=== PATIENT | male | born 1985 | race Caucasian/White ===

== ENCOUNTER 2018-02-08 00:06 | Emergency (ER) | payer MEDICAID ==
[~2018-02-08] VITALS: Ht 185.4 cm; Wt 90.7 kg
[2018-02-08] MEDS ORDERED: LORazepam 0.5 MG TAB PO ONE (06:45)
[2018-02-08 07:30] VITALS: BP 127/92
== END 2018-02-08 07:59 | disposition home or self-care (01) ==
LOC: EDSEX 00:06 → EDBD 00:06 → ER 00:13
DX: F15.90 Other stimulant use, unspecified, uncomplicated (principal); F41.9 Anxiety disorder, unspecified; F32.9 Major depressive disorder, single episode, unspecified

== ENCOUNTER 2018-04-07 17:27 | Emergency (ER) | payer MEDICAID ==
[~2018-04-07] VITALS: Ht 193 cm; Wt 99.8 kg
[2018-04-07 18:10] VITALS: BP 113/72
== END 2018-04-07 20:58 | disposition home or self-care (01) ==
LOC: ER 17:27
DX: L02.512 Cutaneous abscess of left hand (principal); J45.909 Unspecified asthma, uncomplicated; F15.10 Other stimulant abuse, uncomplicated; F11.10 Opioid abuse, uncomplicated

== ENCOUNTER 2018-05-27 10:41 | Emergency (ER) | payer MEDICAID ==
[~2018-05-27] VITALS: Ht 193 cm; Wt 90.7 kg
[2018-05-27] MEDS ORDERED: KETOROLAC TROMETH 30 MG/ML 1ML VIAL IV ONE (10:45)
[2018-05-27] MEDS ORDERED: SODIUM CHLORIDE 0.9% 1,000 ML IV ONE (10:45)
[2018-05-27 10:48] VITALS: BP 111/69
[2018-05-27 11:10] LABS: Basophils # (auto) 0.1 uL; Basophils % (auto) 0.8 % (0.0-2.0); Eosinophils # (auto) 0 uL; Eosinophils % (auto) 0.2 % (0.0-7.0); Hematocrit 50.6 % (41.0-53.0); Hemoglobin 17.6 g/dL (13.5-17.5); Lymphocytes # (auto) 3.3 uL; Lymphocytes % (auto) 23.7 % (10.0-50.0); Mean Corpuscular Hgb Conc. 34.7 g/dL (32.0-36.0); Mean Corpuscular Volume 89.2 fL (80.0-100.0); Monocytes # (auto) 1.1 uL; Monocytes % (auto) 7.5 % (0.0-12.0); Neutrophils # (auto) 9.5 uL; Neutrophils % (auto) 67.8 % (37.0-80.0); Nucleated Red Blood Cells % 0.2 %; Platelet Count (auto) 391 10^3/uL (140-450); Red Blood Cells 5.67 10^6/uL (4.5-5.90); Red Cell Distribution Width 13.9 % (11.8-14.3)
[2018-05-27 11:25] LABS: Calcium 8.9 mg/dL (8.5-10.1); Potassium 3.4 mmol/L (3.5-5.1)
[2018-05-27 11:29] LABS: BUN/Creatinine Ratio 11.8; Bilirubin, Total 0.5 mg/dL (0.2-1.0); Total Protein 9.2 g/dL (6.4-8.2)
== END 2018-05-27 12:35 | disposition left against medical advice (07) ==
LOC: EDBD 10:41 → ER 10:41
DX: F11.10 Opioid abuse, uncomplicated (principal); F10.10 Alcohol abuse, uncomplicated; E87.8 Other disorders of electrolyte and fluid balance, not elsewhere classified; R73.9 Hyperglycemia, unspecified; J45.909 Unspecified asthma, uncomplicated
CPT/HCPCS: 36415; 80053; 80320; 85025; 94761

== ENCOUNTER 2018-11-07 00:25 | Emergency (ER) | payer MEDICAID ==
[~2018-11-07] VITALS: Ht 193 cm; Wt 90.7 kg
[2018-11-07 00:40] VITALS: BP 147/96
[2018-11-07 01:57] LABS: Basophils # (auto) 0.1 uL; Basophils % (auto) 0.9 % (0.0-2.0); Eosinophils # (auto) 0.1 uL; Eosinophils % (auto) 1.2 % (0.0-7.0); Hematocrit 40.6 % (41.0-53.0); Hemoglobin 13.5 g/dL (13.5-17.5); Lymphocytes % (auto) 24.9 % (10.0-50.0); Mean Corpuscular Hemoglobin 30.4 pg (28.0-32.0); Mean Corpuscular Hgb Conc. 33.4 g/dL (32.0-36.0); Monocytes # (auto) 1.1 uL; Neutrophils # (auto) 4.9 uL; Nucleated Red Blood Cells % 0.1 %; Platelet Count (auto) 296 10^3/uL (140-450); Red Blood Cells 4.46 10^6/uL (4.5-5.90); Red Cell Distribution Width 14.9 % (11.8-14.3); White Blood Cell 8.2 10^3/uL (4.4-10.8)
[2018-11-07 02:16] LABS: Albumin 3.8 g/dL (3.4-5.0); BUN/Creatinine Ratio 18.5; Calcium 8.4 mg/dL (8.5-10.1); Potassium 3.6 mmol/L (3.5-5.1)
[2018-11-07 02:19] LABS: Bilirubin, Total 0.3 mg/dL (0.2-1.0)
== END 2018-11-07 00:47 | disposition left against medical advice (07) ==
LOC: ER 00:25
DX: R06.02 Shortness of breath (principal); Z53.21 Procedure and treatment not carried out due to patient leaving prior to being seen by health care provider
CPT/HCPCS: 36415; 71045; 80053; 85025

== ENCOUNTER 2019-01-23 12:27 | Inpatient (IN) | payer MEDICAID ==
[~2019-01-23] VITALS: Ht 182.9 cm; Wt 81.6 kg
[2019-01-23] MEDS ORDERED: SODIUM CHLORIDE 0.9% 1,000 ML IV ONE ×2 (13:21→23:45)
[2019-01-23 13:35] LABS: Basophils # (auto) 0.1 uL; Basophils % (auto) 1.3 % (0.0-2.0); Eosinophils # (auto) 0.2 uL; Eosinophils % (auto) 3.3 % (0.0-7.0); Hematocrit 41.7 % (41.0-53.0); Hemoglobin 14.1 g/dL (13.5-17.5); Lymphocytes # (auto) 1.8 uL; Lymphocytes % (auto) 40.1 % (10.0-50.0); Mean Corpuscular Hemoglobin 30.6 pg (28.0-32.0); Mean Corpuscular Hgb Conc. 33.7 g/dL (32.0-36.0); Mean Corpuscular Volume 90.7 fL (80.0-100.0); Monocytes # (auto) 0.4 uL; Monocytes % (auto) 8.3 % (0.0-12.0); Neutrophils # (auto) 2.1 uL; Nucleated Red Blood Cells % 0.1 %; Platelet Count (auto) 394 10^3/uL (140-450); Red Cell Distribution Width 14.6 % (11.8-14.3); White Blood Cell 4.6 10^3/uL (4.4-10.8)
[2019-01-23 13:51] LABS: Albumin 3.7 g/dL (3.4-5.0); Calcium 9.1 mg/dL (8.5-10.1)
[2019-01-23 13:54] LABS: BUN/Creatinine Ratio 14.8; Bilirubin, Total 0.5 mg/dL (0.2-1.0); Total Protein 8.5 g/dL (6.4-8.2)
[2019-01-23] MEDS ORDERED: VANCOMYCIN 1GM/250ML 250 ML IV ONE (20:30)
[2019-01-23] MEDS ORDERED: cefTRIAXone 1GM/50ML D5W 50 ML IV ONE (20:30)
[2019-01-23] MEDS ORDERED: ONDANSETRON HCL 4 MG/2 ML VIAL IV PRN (22:15)
[2019-01-23] MEDS ORDERED: POTASSIUM CHL 20 Meq TABLET PO ONE (22:15)
[2019-01-23] MEDS ORDERED: ACETAMINOPHEN 325 MG TAB PO PRN (22:15)
[2019-01-23] MEDS ORDERED: CLINDAMYCIN 600MG IV 50 ML IV ONE (22:15)
[2019-01-23] MEDS ORDERED: TEMAZEPAM 15 MG CAP PO PRN (22:15)
[2019-01-23] MEDS ORDERED: chlordiazePOXIDE HCL 25 MG CAP PO PRN (22:15)
[2019-01-23 22:57] LABS: Lactic Acid w/Reflex 2.8 mmol/L (0.4-2.0)
[2019-01-24] VITALS (7 sets, daily range): BP systolic 102–126; BP diastolic 44–76
--- NOTE | 2019-01-24 00:30 | NUR ---
Opening Shift Note Assumed care of patient, awake and alert. No S/S of distress/SOB. Instructed on POC and to call for assist PRN, will continue to monitor for changes Q1hr and PRN.
--- NOTE | 2019-01-24 00:30 | NUR ---
MS admit from ER ARISTIDESKRISTA admitted to tele/MS no SBAR received. Patient oriented to DESTINY MCKINNEY RN primary RN, unit med/surg, room 205, bed, and unit policies regarding patient care and visiting hours. Patient weighed by bedscale and encouraged to call if they need something. All questions and concerns addressed, patient verbalized understanding.
--- NOTE | 2019-01-24 00:30 | NUR ---
RECEIVED PATIENT TO ROOM 205 FROM EMERGENCY DEPARTMENT, NO SBAR RECEIVED. PATIENT AWAKE, ALERT AND ORIENTED X R, NO S/S DISTRESS, C/O OF LEFT FOOT PAIN 5/10, PATIENT HAS MULTIPLE SCRATCHES ON BILATERAL LOWER EXTREMITIES, RIGHT CAMPUZANO HAS A SMALL, SCABBED OVER ABRASION. BED IS IN LOW POSITION, SIDE RAILS UP X 2, PATIENT ORIENTED TO ROOM AND EQUIPMENT, ADVISED TO CALL FOR ASSISTANCE, WILL CONTINUE TO MONITOR WITH HOURLY ROUNDING FOR REMAINDER OF SHIFT.
[2019-01-24] MEDS: HYDROcodone-ACET 5/325MG TAB PO PRN ×2 (02:09→22:07)
[2019-01-24] MEDS: CLINDAMYCIN 600MG IV 50 ML IV SCH ×3 (06:54→21:26)
--- NOTE | 2019-01-24 07:30 | NUR ---
ENDORSED CARE OF PATIENT TO DAY SHIFT CLARISSE CONNELL.
[2019-01-24] MEDS: FAMOTIDINE 20 MG TAB PO SCH ×2 (10:00→21:27)
[2019-01-24 11:02] LABS: Basophils # (auto) 0 uL; Basophils % (auto) 0.8 % (0.0-2.0); Eosinophils # (auto) 0.1 uL; Eosinophils % (auto) 2.1 % (0.0-7.0); Hematocrit 37.8 % (41.0-53.0); Hemoglobin 12.9 g/dL (13.5-17.5); Lymphocytes # (auto) 1.5 uL; Lymphocytes % (auto) 33.2 % (10.0-50.0); Mean Corpuscular Hemoglobin 30.9 pg (28.0-32.0); Monocytes # (auto) 0.5 uL; Monocytes % (auto) 11.4 % (0.0-12.0); Neutrophils # (auto) 2.4 uL; Neutrophils % (auto) 52.5 % (37.0-80.0); Platelet Count (auto) 314 10^3/uL (140-450); Red Blood Cells 4.16 10^6/uL (4.5-5.90); White Blood Cell 4.5 10^3/uL (4.4-10.8)
--- NOTE | 2019-01-24 11:10 | NUR ---
WOUND CARE NOTE: Wound care in to see patient per wound care request regarding " Lt foot redness and swelling, open blisters on bilateral great toes, bilateral posterior ankle" that are noted present on admission. Bedside nurse took photograph of patient's wound upon admission for reference. Patient is 33 y/o male with admitting diagnosis Lt Foot Cellulitis. Patient with history of Asthma, Anxiety, Depression. Patient is resting in bed in Rm. 205. Patient is awake, alert and oriented. Patient is in no stated pain at this time. He's able to turn and reposition self. His Lakhwinder score is 20. Skin assessment done with the assistance of patient's nurse, CLARISSE Brown. Patient's LLE noted edematous in comparison to his RLE. Patient has multiple dry, scabbed and open blisters to bilateral foot, toes and posterior ankle. Patient reported that when his foot swells, making his shoes tight and how she developed multi blisters, some are dry and scabbed and noted open blisters to his R posterior ankle (1x1cm) and L posterior ankle (1x0.5cm). Cleansed open blisters to bilateral posterior ankle with NS, patted dry with gauze, applied Thera honey gel and covered with Band aid. Patient tolerated well, no other wound noted, no pressure injury. Nursing to continue dressing change of wounds per MD order, No further wound care monitoring needed at this time. RECOMMENDATION: EOD/PRN dressing change to open blisters to bilateral posterior ankle per MD order, offload heels, edematous extremity on pillows. Addendum: 01/24/19 at 1534 by Elis Hensley RN Amended: Links added.
[2019-01-24] MEDS ORDERED: COLCHICINE 0.6 MG CAP PO ONE (11:15)
[2019-01-24] MEDS: SODIUM CHLORIDE 0.9% 1,000 ML IV SCH ×2 (11:15→21:27)
[2019-01-24 11:25] LABS: Calcium 8.4 mg/dL (8.5-10.1); Magnesium 2.2 mg/dL (1.6-2.6); Potassium 3.9 mmol/L (3.5-5.1)
[2019-01-24 11:32] LABS: BUN/Creatinine Ratio 19.7; CRP High Sensitivity 2.19 mg/dL (< 0.3)
[2019-01-24] MEDS ORDERED: FOLIC ACID 1 MG, MULTIPLE VITAMIN 10 ML, MAGNESIUM SULF SDV 50% 8 MEQ, THIAMINE INJ 100... INJ SCH ×5 (12:00)
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
--- NOTE | 2019-01-24 19:38 | NUR ---
RECEIVED PATIENT FROM DAY SHIFT RN. PATIENT RESTING IN BED. NO S/S OF DISTRESS NOTED. C/O PAIN ON HIS LOWER EXTREMITIES @ 5/10. PATIENT COULD TOLERATE IT. NO PAIN MEDICATION REQUESTED. INSTRUCTED PATIENT THAT HE COULD ASK FOR PAIN MEDICATION IF HE COULD NOT TOLERATE THE PAIN. PATIENT VERBALIZED UNDERSTANDING. POC INSTRUCTED AND ENCOURAGED PATIENT TO CALL FOR CORPORATE TRAVEL COUNSELOR IF NEEDED. BED IN LOWEST POSITION WITH SIDE RAILS UP X 2. CALL [facility] WITHIN REACH. CONTINUE TO MONITOR FOR CHANGES Q1H AND PRN.
[2019-01-24] MEDS: COLCHICINE 0.6 MG CAP PO SCH (21:27)
--- NOTE | 2019-01-24 22:11 | NUR ---
PATIENT C/O PAIN @ 11/27. MEDICATED PATIENT ORDERED. CONTINUE TO MONITOR.
--- NOTE | 2019-01-25 03:04 | NUR ---
Assumed care of patient. Received report from CLARISSE Eubanks. Patient is sleeping comfortably, no s/s of distress or discomfort. Will continue to monitor with hourly rounding for remainder of shift.
--- NOTE | 2019-01-25 03:04 | NUR ---
REPORT GIVEN TO DESTINY ROBB.
[2019-01-25] MEDS: SODIUM CHLORIDE 0.9% 1,000 ML IV SCH (03:15)
[2019-01-25 05:39] VITALS: BP 104/63
[2019-01-25] MEDS: CLINDAMYCIN 600MG IV 50 ML IV SCH (06:09)
--- NOTE | 2019-01-25 07:28 | NUR ---
SHIFT CLOSING NOTE ENDORSED CARE OF PATIENT TO DAY SHIFT CLARISSE LAYTON.
--- NOTE | 2019-01-25 07:30 | NUR ---
Opening Shift Note Assumed care of patient, awake and alert. No S/S of distress/SOB or pain. Instructed on POC and to call for assist PRN, will continue to monitor for changes Q1hr and PRN.
[2019-01-25 08:00] VITALS: BP 106/55
--- NOTE | 2019-01-25 08:09 | NUR ---
Dr. Khan in to see patient as hospitalist.
[2019-01-25 08:38] VITALS: BP 101/55
--- NOTE | 2019-01-25 09:30 | NUR ---
Discharge order received. Patient states he has someone to take him home.
[2019-01-25] MEDS: COLCHICINE 0.6 MG CAP PO SCH (09:47)
[2019-01-25] MEDS: FAMOTIDINE 20 MG TAB PO SCH (09:47)
[2019-01-27 10:17] LABS: Hepatitis B Surface Antibody Positive
[2019-01-27 10:42] LABS: Hepatitis A Total Antibody Positive
[2019-01-27 13:27] LABS: Hepatitis B Core Total AB Negative
[2019-01-27 13:28] LABS: Hepatitis B Surface Antigen Negative (Negative); Hepatitis C Antibody Negative (Negative)
== END 2019-01-25 11:15 | disposition home or self-care (01) | DRG 351 ==
LOC: ER 12:27 → EDBD 12:27 → OVERFLOW 12:28 → CENTRAL 23:34
PROVIDERS: ADMIT Nurse Practitioner; ATTEND Internal Medicine
DX: M10.9 Gout, unspecified (principal); E87.6 Hypokalemia; F10.129 Alcohol abuse with intoxication, unspecified; J45.909 Unspecified asthma, uncomplicated; F12.90 Cannabis use, unspecified, uncomplicated; F11.10 Opioid abuse, uncomplicated; F32.9 Major depressive disorder, single episode, unspecified; F41.9 Anxiety disorder, unspecified; R59.9 Enlarged lymph nodes, unspecified; Z59.0 Homelessness; Z71.41 Alcohol abuse counseling and surveillance of alcoholic; Z71.51 Drug abuse counseling and surveillance of drug abuser
CPT/HCPCS: 36415; 73610; 73630; 80048; 80053; 80320; 83036; 83605; 83735; 84550; 85025; 85652; 86141; 86703; 86704; 86706; 86708; 86803; 87040; 87340; 93971; 94761; 96361; 96365; 96367; G0378; J0696; J3490

== ENCOUNTER 2019-09-13 17:10 | Emergency (ER) | payer SELFPAY ==
[~2019-09-13] VITALS: Ht 193 cm; Wt 99.8 kg
[2019-09-13 17:10] VITALS: BP 122/79
== END 2019-09-13 17:36 | disposition left against medical advice (07) ==
LOC: ER 17:10 → EEVIPCON 17:10 → ER 17:36
DX: S51.811A Laceration without foreign body of right forearm, initial encounter (principal); W25.XXXA Contact with sharp glass, initial encounter; Y93.89 Activity, other specified; Y92.89 Other specified places as the place of occurrence of the external cause; Y99.8 Other external cause status